=== PATIENT | male | born 1955 | race Caucasian/White ===

== ENCOUNTER → 2019-07-16 | Outpatient (CLI) | payer BC ==
--- NOTE | 2019-07-16 13:42 | ECHOS ---
STRESS ECHOCARDIOGRAM DATE OF SERVICE: 07/16/2019 INDICATIONS: Chest pain. MEDICATIONS: BASELINE HEART RATE: 60 BASELINE BLOOD PRESSURE: 118/62 MAXIMUM HEART RATE: 156 MAXIMUM BLOOD PRESSURE: 177/64 85% MPHR: 133 100% MPHR: 156 METS: 9.7 MAXIMUM STAGE REACHED: III TOTAL EXERCISE TIME: 8 minutes CLINICAL INFORMATION: STRESS DATA: Heart rate 60, pressure is 118/62 mmHg. Baseline EKG showed sinus mechanism. The patient exercised on the treadmill according to Franck protocol for a total of 8 minutes and achieved 9.7 METs. Max heart rate was 156 which is about 100% of maximum predicted heart rate. Maximum blood pressure was 177/64 mmHg. Clinically, the patient did not have any symptoms of chest pain or chest discomfort during the testing or on recovery and the EKG did not show any significant ST or T-wave abnormalities concerning for ischemia. ECHOCARDIOGRAM IMAGES: On echocardiogram images from parasternal long axis view, parasternal short axis view, apical 4 chamber and apical 2 chamber were obtained as the baseline images, at the peak of the heart rate as well as on recovery. The echocardiogram images showed good augmentation in the left ventricular systolic function without any evidence of wall motion abnormalities concerning for ischemia. CONCLUSION: 1. Excellent exercise tolerance. 2. Normal EKG in response to exercise. 3. Normal echocardiogram in response to exercise. 4. Essentially normal stress echocardiogram for the patient. MMODL / IJN: [id number] /
== END | disposition home or self-care (01) ==
LOC: RADNMMAIN 09:49
PROVIDERS: ATTEND Internal Medicine Geriatric Medicine
DX: R07.9 Chest pain, unspecified (principal)
CPT/HCPCS: 93351